=== PATIENT | female | born 1980 | race Caucasian/White ===

== ENCOUNTER 2022-06-11 16:04 | Emergency (ER) | payer MEDICAID ==
[~2022-06-11] VITALS: Ht 154.9 cm; Wt 101.6 kg
[2022-06-11 16:17] VITALS: BP 139/86
[2022-06-11] MEDS ORDERED: ONDANSETRON HYDR8 MG PO (16:32)
[2022-06-11 17:29] LABS: BASO % 0.4 % (0.0-1.0); EOS % 0.2 % (1.0-4.0); HEMATOCRIT 35.8 % (37.0-47.0); LYMPH # 0.6 10*3/uL (1.3-4.4); LYMPH % 13.3 % (27.0-41.0); MEAN CELL VOLUME 87.1 fl (81.0-99.0); MEAN CORPUSCULAR HGB 30.2 pg (27.0-31.0); MEAN CORPUSCULAR HGB CONC 34.6 g/dl (33.0-37.0); MONO # 0.2 10*3/uL (0.1-1.0); MONO % 3.6 % (3.0-9.0); NEUT # 3.7 10*3/uL (2.3-7.9); NEUT % 82.3 % (47.0-73.0); PLATELET COUNT AUTOMATED 179 10*3/uL (130-400); RED BLOOD COUNT 4.11 10*6/uL (4.10-5.10); RED CELL DISTRI WIDTH 13.5 % (0-14.5); WHITE BLOOD COUNT 4.5 10*3/uL (4.8-10.8)
[2022-06-11 17:35] LABS: BILIRUBIN Negative (Negative); BLOOD Negative (Negative); CLARITY Clear (Clear); COLOR Yellow (Yellow); GLUCOSE Negative (Negative); KETONE Negative (Negative); LEUKO ESTERASE Negative (Negative); NITRITE Negative (Negative)
[2022-06-11 17:45] LABS: ALKALINE PHOSPHATASE 70 U/L (45-117); BUN 14 mg/dl (7-24); CHLORIDE 103 mmol/L (98-107); CREATININE 0.73 mg/dL (0.55-1.02); POTASSIUM 3.8 mmol/L (3.5-5.1); SGOT/AST 27 IU/L (3-35); SGPT/ALT 54 U/L (12-78); SODIUM 137 mmol/L (136-145); TOTAL PROTEIN 7.5 gm/dL (6.4-8.2)
[2022-06-11 18:06] LABS: EPITHELIAL CELLS 0-2; WBC 0-2 wbc/hpf (0-5)
[2022-06-11] MEDS ORDERED: TAMIFLU 75MG CA75 MG PO (19:19)
== END 2022-06-11 19:35 | disposition home or self-care (01) ==
LOC: ED 16:04
PROVIDERS: Physician Assistant
DX: J10.1 Influenza due to other identified influenza virus with other respiratory manifestations (principal); Z20.822 Contact with and (suspected) exposure to COVID-19

== ENCOUNTER 2022-08-18 14:06 | Emergency (ER) | payer MEDICAID ==
[~2022-08-18] VITALS: Wt 104.3 kg
[~2022-08-18 14:06] MED LIST: ONDANSETRON HYDR8 MG PO; TAMIFLU 75MG CA75 MG PO
[2022-08-18 16:04] LABS: BASO % 0.1 % (0.0-1.0); EOS % 0.1 % (1.0-4.0); HEMATOCRIT 31.2 % (37.0-47.0); LYMPH # 1.3 10*3/uL (1.3-4.4); LYMPH % 15.7 % (27.0-41.0); MEAN CELL VOLUME 95.4 fl (81.0-99.0); MEAN CORPUSCULAR HGB 32.1 pg (27.0-31.0); MEAN CORPUSCULAR HGB CONC 33.7 g/dl (33.0-37.0); MEAN PLATELET VOLUME 9.9 fl (9.6-12.3); MONO # 0.8 10*3/uL (0.1-1.0); NEUT # 6.1 10*3/uL (2.3-7.9); NEUT % 73.5 % (47.0-73.0); NUCLEATED RED BLOOD CELL 0.2 % (0.0-0.0); PLATELET COUNT AUTOMATED 259 10*3/uL (130-400); RED BLOOD COUNT 3.27 10*6/uL (4.10-5.10); RED CELL DISTRI WIDTH 17.6 % (0-14.5); WHITE BLOOD COUNT 8.3 10*3/uL (4.8-10.8)
[2022-08-18 16:26] LABS: ALKALINE PHOSPHATASE 82 U/L (46-116); BUN 13 mg/dl (9-23); CHLORIDE 104 mmol/L (98-107); POTASSIUM 3.8 mmol/L (3.4-5.1); SGPT/ALT 80 U/L (10-49); TOTAL PROTEIN 7.2 gm/dL (6.0-8.0)
[2022-08-18] MEDS ORDERED: CEPHALEXIN500 M1 PO (18:05)
[2022-08-18 18:14] VITALS: BP 116/60
== END 2022-08-18 20:29 | disposition home or self-care (01) ==
LOC: ED 14:06
PROVIDERS: Nurse Practitioner Family
DX: L03.116 Cellulitis of left lower limb (principal)

== ENCOUNTER 2022-09-28 16:50 | Inpatient (IN) | payer MEDICAID ==
[~2022-09-28] VITALS: Ht 157.5 cm; Wt 103.9 kg
[~2022-09-28 16:50] MED LIST changes: +CEPHALEXIN500 M1 PO
[2022-09-28 17:16] VITALS: BP 140/85
[2022-09-28 17:53] LABS: BASO % 0.5 % (0.0-1.0); EOS % 0.2 % (1.0-4.0); HEMATOCRIT 31.3 % (37.0-47.0); LYMPH # 0.7 10*3/uL (1.3-4.4); LYMPH % 15.5 % (27.0-41.0); MEAN CELL VOLUME 95.4 fl (81.0-99.0); MEAN CORPUSCULAR HGB 32.3 pg (27.0-31.0); MEAN CORPUSCULAR HGB CONC 33.9 g/dl (33.0-37.0); MEAN PLATELET VOLUME 9.9 fl (9.6-12.3); MONO # 0.6 10*3/uL (0.1-1.0); MONO % 13.2 % (3.0-9.0); NEUT # 3.1 10*3/uL (2.3-7.9); NEUT % 70.4 % (47.0-73.0); PLATELET COUNT AUTOMATED 358 10*3/uL (130-400); RED BLOOD COUNT 3.28 10*6/uL (4.10-5.10); RED CELL DISTRI WIDTH 15.9 % (0-14.5); WHITE BLOOD COUNT 4.4 10*3/uL (4.8-10.8)
[2022-09-28 18:09] LABS: ALKALINE PHOSPHATASE 69 U/L (46-116); BUN 12 mg/dl (9-23); CHLORIDE 101 mmol/L (98-107); POTASSIUM 5.2 mmol/L (3.4-5.1); SGPT/ALT 68 U/L (10-49); TOTAL PROTEIN 7.5 gm/dL (6.0-8.0)
[2022-09-28] MEDS ORDERED: ALLOPURINOL100 MG PO (19:07)
[2022-09-28] MEDS ORDERED: GOOD NEIGHBOR L10 MG PO (19:08)
[2022-09-28] MEDS ORDERED: PANTOPRAZOLE SO20 MG PO (19:08)
[2022-09-28 19:10] VITALS: BP 105/58
[2022-09-28 20:00] VITALS: BP 115/60
[2022-09-28 20:05] VITALS: BP 115/60
[2022-09-29] VITALS: BP 93/56
[2022-09-29 06:17] LABS: MEAN CELL VOLUME 97.6 fl (81.0-99.0); MEAN CORPUSCULAR HGB CONC 32.8 g/dl (33.0-37.0); PLATELET COUNT AUTOMATED 281 10*3/uL (130-400); RED BLOOD COUNT 2.97 10*6/uL (4.10-5.10); RED CELL DISTRI WIDTH 15.9 % (0-14.5); WHITE BLOOD COUNT 3.3 10*3/uL (4.8-10.8)
[2022-09-29 06:22] LABS: ALKALINE PHOSPHATASE 70 U/L (46-116); BUN 8 mg/dl (9-23); CHLORIDE 100 mmol/L (98-107); CHOLESTEROL 105 mg/dL (<200); FREE T4 1.04 ng/dl (0.89-1.76); SGPT/ALT 51 U/L (10-49); THYROID STIM HORMONE (HS) 1.522 uIU/ml (0.550-4.780); TOTAL PROTEIN 6.5 gm/dL (6.0-8.0); TRIGLYCERIDES 102 mg/dl (<150)
[2022-09-29 06:26] LABS: MANUAL DIFF REFLEX YES
[2022-09-29 06:27] LABS: LDL CHOLESTEROL 70 mg/dL (9-159); POTASSIUM 3.5 mmol/L (3.4-5.1)
[2022-09-29 06:37] LABS: ACT PARTIAL THROMBO TIME 33.6 SECONDS (20.0-32.1)
[2022-09-29 07:16] LABS: BASOPHILS 1 % (0-1); PLATELET SUFFICIENCY NORMAL (NORMAL); TOTAL CELLS COUNTED 100 #CELLS
[2022-09-29 08:00] VITALS: BP 132/58
[2022-09-29 12:00] VITALS: BP 130/40
[2022-09-29 16:00] VITALS: BP 113/51
[2022-09-29 20:00] VITALS: BP 111/54
[2022-09-30] VITALS: BP 97/51
[2022-09-30 06:13] LABS: HEMATOCRIT 32.6 % (37.0-47.0); MEAN CELL VOLUME 99.1 fl (81.0-99.0); MEAN CORPUSCULAR HGB 31.9 pg (27.0-31.0); MEAN CORPUSCULAR HGB CONC 32.2 g/dl (33.0-37.0); MEAN PLATELET VOLUME 10.4 fl (9.6-12.3); PLATELET COUNT AUTOMATED 316 10*3/uL (130-400); RED BLOOD COUNT 3.29 10*6/uL (4.10-5.10); RED CELL DISTRI WIDTH 15.7 % (0-14.5); WHITE BLOOD COUNT 3.6 10*3/uL (4.8-10.8)
[2022-09-30 06:20] LABS: BUN 7 mg/dl (9-23); CHLORIDE 109 mmol/L (98-107); POTASSIUM 3.6 mmol/L (3.4-5.1)
[2022-09-30 06:24] LABS: MANUAL DIFF REFLEX YES
[2022-09-30 07:07] LABS: BASOPHILS 1 % (0-1); OVALOCYTES FEW; PLATELET SUFFICIENCY NORMAL (NORMAL); TOTAL CELLS COUNTED 100 #CELLS
[2022-09-30 08:00] VITALS: BP 86/48
[2022-09-30] MEDS ORDERED: DOXYCYCLINE HY100 M3 PO ×2 (11:19)
[2022-09-30] MEDS ORDERED: LEVOFLOXACIN750 M2 PO ×2 (11:19→12:04)
[2022-09-30 12:00] VITALS: BP 94/50
[2022-09-30] MEDS ORDERED: LINEZOLID600 MG PO (12:04)
[2022-09-30] MEDS ORDERED: AMOX-CLAV 875-1 EACH PO (12:04)
== END 2022-09-30 15:50 | disposition home or self-care (01) | DRG 720 ==
LOC: ED 16:50 → 4E 18:15 → EDHOLD 18:15 → 4E 19:36
PROVIDERS: Emergency Medicine; Internal Medicine; ADMIT Internal Medicine; ATTEND Internal Medicine
DX: A41.9 Sepsis, unspecified organism (principal); J18.9 Pneumonia, unspecified organism; D84.821 Immunodeficiency due to drugs; C50.911 Malignant neoplasm of unspecified site of right female breast; E87.1 Hypo-osmolality and hyponatremia; Z20.822 Contact with and (suspected) exposure to COVID-19; C50.912 Malignant neoplasm of unspecified site of left female breast; Z17.1 Estrogen receptor negative status [ER-]; E87.5 Hyperkalemia; D64.9 Anemia, unspecified; R74.01 Elevation of levels of liver transaminase levels; R73.9 Hyperglycemia, unspecified; Z15.01 Genetic susceptibility to malignant neoplasm of breast; Z15.09 Genetic susceptibility to other malignant neoplasm; Z92.21 Personal history of antineoplastic chemotherapy; Z80.0 Family history of malignant neoplasm of digestive organs